=== PATIENT | male | born 1945 | race Caucasian/White ===

== ENCOUNTER → 2021-07-20 | Outpatient (CLI) | payer BC ==
[~2021-07-20] MED LIST: ACET1TAB15 PO; AMLO1TAB25 PO; AMLO5TAB2 PO; ASPI1CHW3 PO; ASPI81TA90 PO; ATOR40TA75 PO; CLOP75TA2 PO; DRIS50003 PO; FISHCAP PO; FOLTTAB9 PO; HYDR-3713 PO; JANU100T; JANU100T PO; LISINOPRIL/HCTZ PO; MAGN400C PO; MAGN400T5 PO; METF-838 PO; METF1000 PO; METO1TAB33 PO; NITR0.4S14; PRESCAP PO; PRESCAP4 PO; ROSU40TA4; SPIR-10; TESTPOW5 PO; TOPROL XL PO; VITA100018 PO; VITA200015 PO; VYTO10TA41 PO
== END ==
LOC: M LABSMTC 09:07
PROVIDERS: ATTEND Anesthesiology
DX: Z01.812 Encounter for preprocedural laboratory examination (principal); Z20.822 Contact with and (suspected) exposure to COVID-19

== ENCOUNTER 2021-07-25 07:29 | Day surgery (SDC) | payer BC ==
[~2021-07-25] VITALS: Ht 177.8 cm; Wt 82.9 kg
[~2021-07-25 07:29] MED LIST changes: +LIDOCAINE 2% 100MG/5ML SDV (FOR ANES.) As Ordered ONE; +NS 1,000 ML IV ONE; +propofoL 200 MG/20 ML VIAL As Ordered ONE
[2021-07-25] MEDS ORDERED: PREVAGEN PO (07:56)
[2021-07-25 09:23] VITALS: BP 154/67
== END 2021-07-25 09:23 | disposition home or self-care (01) ==
LOC: M OPP 07:29
PROVIDERS: ATTEND Internal Medicine Gastroenterology
DX: K63.5 Polyp of colon (principal); K52.832 Lymphocytic colitis; K57.30 Diverticulosis of large intestine without perforation or abscess without bleeding; K64.0 First degree hemorrhoids; Z79.82 Long term (current) use of aspirin; Z79.84 Long term (current) use of oral hypoglycemic drugs; Z79.891 Long term (current) use of opiate analgesic; Z79.899 Other long term (current) drug therapy; F17.210 Nicotine dependence, cigarettes, uncomplicated; Z95.1 Presence of aortocoronary bypass graft; Z95.5 Presence of coronary angioplasty implant and graft

== ENCOUNTER 2021-08-06 11:31 | Observation (INO) | payer BC ==
[~2021-08-06] VITALS: Ht 177.8 cm; Wt 83.0 kg
[~2021-08-06 11:31] MED LIST changes: -JANU100T; -LIDOCAINE 2% 100MG/5ML SDV (FOR ANES.) As Ordered ONE; -NITR0.4S14; +NITR0.4S14 PO; -NS 1,000 ML IV ONE; +PREVAGEN PO; -ROSU40TA4; +ROSU40TA4 PO; -SPIR-10; +SPIR-10 PO; -propofoL 200 MG/20 ML VIAL As Ordered ONE
[2021-08-06] MEDS ORDERED: ASPIRIN 81 MG CHEW TABLET PO ONE (12:00)
[2021-08-06 12:19] LABS: BASO % 0.3 % (0.0-1.0); HEMATOCRIT 40.3 % (42.0-52.0); HEMOGLOBIN 13.1 g/dl (13.5-17.5); LYMPH # 0.9 10^3/uL (1.5-5.0); LYMPH % 8.2 % (24.0-44.0); MEAN CORPUSCULAR HEMOGLOBIN 30.1 pg (27.0-33.0); MEAN CORPUSCULAR HGB CONC 32.5 g/dl (32.0-36.5); MEAN CORPUSCULAR VOLUME 92.6 fl (80.0-96.0); MONO # 0.5 10^3/uL (0.0-0.8); NEUTROPHILS # 9.9 10^3/uL (1.5-8.5); NEUTROPHILS % 86.7 % (36.0-66.0); PLATELET COUNT, AUTOMATED 307 10^3/uL (150-450); RED BLOOD COUNT 4.35 10^6/uL (4.30-6.10); WHITE BLOOD COUNT 11.4 10^3/uL (4.0-10.0)
[2021-08-06 12:29] LABS: INR 0.92; PROTHROMBIN TIME 12.8 SECONDS (12.7-14.5)
[2021-08-06 12:30] LABS: PARTIAL THROMBOPLASTIN TIME 28.8 SECONDS (25.9-37.0)
[2021-08-06 12:52] LABS: CK-MB VALUE MASS 4.1 NG/ML (<3.6); MB/CK RELATIVE INDEX 5.06 (< OR =4)
[2021-08-06 12:59] LABS: CALCIUM LEVEL 9.9 MG/DL (8.8-10.2); CREATININE FOR GFR 1.4 MG/DL (0.70-1.30); FREE T4 1.09 NG/DL (0.76-1.46); GLOMERULAR FILTRATION RATE 52.3 (>42); POTASSIUM SERUM 4.8 MEQ/L (3.5-5.1); THYROID STIMULATING HORMONE 0.697 uIU/ML (0.358-3.740)
[2021-08-06] MEDS ORDERED: ISOVUE-370 76% 100ML VIAL As Ordered ONE (13:32)
[2021-08-06] MEDS ORDERED: DEXTROSE 50% 50 ML SYRINGE IV PRN (16:50)
[2021-08-06] MEDS ORDERED: GLUCOSE 4GM CHEW TABLET PO PRN (16:50)
[2021-08-06] MEDS ORDERED: GLUCAGON INJ 1MG VIAL SC PRN (16:50)
[2021-08-06] MEDS: INSULIN LISPRO (NovoLOG) PER UNIT SC SCH (17:30)
[2021-08-06] MEDS ORDERED: HYDR-3490 PO (18:33)
[2021-08-06] MEDS ORDERED: LISI20TA33 PO (18:33)
[2021-08-06] MEDS ORDERED: PRED20TA PO (18:33)
[2021-08-06] MEDS ORDERED: VITA-168 PO (18:34)
[2021-08-06] MEDS ORDERED: CYAN100050 PO (18:34)
[2021-08-06] MEDS ORDERED: HOME MED LIST COMPLETE! XX SCH (18:35)
[2021-08-06 19:14] LABS: RSV AMPLIFICATION NEGATIVE (NEGATIVE)
[2021-08-06] MEDS: NS 1,000 ML IV SCH (19:42)
[2021-08-06 20:24] VITALS: BP 202/112
[2021-08-06] MEDS ORDERED: NITROGLYCERIN 0.4 MG SUBL TABLET SL STA (20:39)
[2021-08-06] MEDS ORDERED: LABETALOL 100MG/20ML VIAL IV STA (20:41)
[2021-08-06] MEDS: ENOXAPARIN 80MG/0.8ML SYRINGE (J1650 PER 10MG) SC SCH (21:00)
[2021-08-06] MEDS ORDERED: ROSUVASTATIN 10 MG TAB (CRESTOR) PO SCH (21:00)
[2021-08-06] MEDS ORDERED: INSULIN LISPRO (NovoLOG) PER UNIT SC SCH (21:00)
[2021-08-06 21:15] VITALS: BP 145/86
[2021-08-06 22:14] LABS: CK-MB VALUE MASS 2.4 NG/ML (<3.6); MB/CK RELATIVE INDEX 5.71 (< OR =4)
[2021-08-06] MEDS ORDERED: METOPROLOL SUCC (TopROL XL) 100MG *XL* TAB PO ONE (22:25)
[2021-08-07] VITALS: BP 157/77
[2021-08-07] MEDS: NS 1,000 ML IV SCH (02:00)
[2021-08-07] MEDS ORDERED: amLODIPine 5 MG TAB PO ONE (04:25)
[2021-08-07 05:53] LABS: HEMATOCRIT 37.8 % (42.0-52.0); HEMOGLOBIN 12.4 g/dl (13.5-17.5); MEAN CORPUSCULAR HGB CONC 32.8 g/dl (32.0-36.5); MEAN CORPUSCULAR VOLUME 91.5 fl (80.0-96.0); PLATELET COUNT, AUTOMATED 263 10^3/uL (150-450); RED BLOOD COUNT 4.13 10^6/uL (4.30-6.10); WHITE BLOOD COUNT 10.8 10^3/uL (4.0-10.0)
[2021-08-07 06:09] LABS: HEMOGLOBIN A1c 6.6 %
[2021-08-07 06:12] LABS: BLOOD UREA NITROGEN 16 MG/DL (7-18); CALCIUM LEVEL 9.5 MG/DL (8.8-10.2); CARBON DIOXIDE LEVEL 31 MEQ/L (21-32); CHLORIDE LEVEL 105 MEQ/L (98-107); CREATININE FOR GFR 1.19 MG/DL (0.70-1.30); GLOMERULAR FILTRATION RATE > 60.0 (>42); GLUCOSE, FASTING 117 MG/DL (70-100); POTASSIUM SERUM 3.8 MEQ/L (3.5-5.1); SODIUM LEVEL 140 MEQ/L (136-145)
[2021-08-07 06:21] LABS: CK-MB VALUE MASS 2.1 NG/ML (<3.6); MB/CK RELATIVE INDEX 5.53 (< OR =4)
[2021-08-07 08:00] VITALS: BP 177/70
[2021-08-07] MEDS: ENOXAPARIN 80MG/0.8ML SYRINGE (J1650 PER 10MG) SC SCH (08:07)
[2021-08-07] MEDS: INSULIN LISPRO (NovoLOG) PER UNIT SC SCH ×2 (08:07→12:00)
[2021-08-07 09:00] VITALS: BP 177/70
[2021-08-07] MEDS ORDERED: ASPIRIN 81MG ENTERIC TABLET PO SCH (09:00)
[2021-08-07] MEDS ORDERED: predniSONE 20 MG TAB PO SCH (09:00)
[2021-08-07] MEDS ORDERED: METOPROLOL SUCC (TopROL XL) 100MG *XL* TAB PO SCH (09:00)
[2021-08-07] MEDS ORDERED: amLODIPine 5 MG TAB PO SCH (09:00)
[2021-08-07 11:37] VITALS: BP 158/60
[2021-08-07 12:00] VITALS: BP 149/75
[2021-08-07] MEDS ORDERED: ISOVUE-370 76% 100ML VIAL As Ordered ONE (14:10)
[2021-08-07 15:39] LABS: CK-MB VALUE MASS 1.6 NG/ML (<3.6); MB/CK RELATIVE INDEX 4.1 (< OR =4)
== END 2021-08-07 15:52 | disposition home or self-care (01) ==
LOC: M ED 11:31 → M ED INP 16:46 → M MSPAV 20:24 → M PCU 21:16
PROVIDERS: ADMIT Family Medicine; ATTEND Family Medicine
DX: R00.0 Tachycardia, unspecified (principal); I25.10 Atherosclerotic heart disease of native coronary artery without angina pectoris; E11.22 Type 2 diabetes mellitus with diabetic chronic kidney disease; I13.0 Hypertensive heart and chronic kidney disease with heart failure and stage 1 through stage 4 chronic kidney disease, or unspecified chronic kidney disease; E78.5 Hyperlipidemia, unspecified; K52.832 Lymphocytic colitis; Z95.5 Presence of coronary angioplasty implant and graft; Z95.1 Presence of aortocoronary bypass graft; N18.30 Chronic kidney disease, stage 3 unspecified; Z79.899 Other long term (current) drug therapy; Z79.82 Long term (current) use of aspirin; Z79.84 Long term (current) use of oral hypoglycemic drugs; Z79.52 Long term (current) use of systemic steroids
CPT/HCPCS: 36415; 71045; 71275; 80048; 82550; 82553; 83036; 83735; 83880; 84439; 84443; 84484; 85025; 85027; 85610; 85730; 87631; 93005; 93041; 93306; 93970; 94760; 96372; 99285; J1650; J1815; J7512; Q9967

== ENCOUNTER → 2022-12-24 | Outpatient (CLI) | payer BC ==
[~2022-12-24] MED LIST changes: +ASPI-655 PO; -ASPI1CHW3 PO; +CYAN-1 PO; +HYDR-3490 PO; +LISI20TA33 PO; +PRED20TA PO; +VITA-168 PO
== END ==
LOC: M RAD 15:08
PROVIDERS: ATTEND Nurse Practitioner
DX: R60.0 Localized edema (principal)